=== PATIENT | female | born 1995 | race Caucasian/White ===

== ENCOUNTER 2021-07-17 02:11 | Inpatient (IN) | payer BC ==
[2021-07-17] VITALS (63 sets, daily range): BP systolic 13–145; BP diastolic 44–92
[~2021-07-17] VITALS: Ht 157.5 cm; Wt 85.0 kg
[2021-07-17] MEDS ORDERED: OXYTOCIN PRE-MIX DRIP 500 ML IV ONE ×3 (07:39→21:49)
[2021-07-17] MEDS ORDERED: D5 LR IV SOLUTION 1,000 ML IV ONE (07:39)
[2021-07-17] MEDS ORDERED: AMPICILLIN 2,000 MG/14.8 ML (IV USE) ONE (07:39)
[2021-07-17] MEDS ORDERED: WATER (STERILE) FOR INJECTION 20 ML ONE (07:41)
[2021-07-17] MEDS ORDERED: AMPICILLIN FOR IV USE 2,000 MG in WATER (STERILE) FOR INJECTION 14.8 ML IV SCH (08:16)
[2021-07-17] MEDS: D5 LR IV SOLUTION 1,000 ML IV SCH ×2 (08:19→14:39)
--- NOTE | 2021-07-17 08:27 | History & Physical ---
History and Physical Date Seen by Provider: Jul 17, 2021 Time Seen by Provider: 08:25 This patient is a 26-year-old 1 female who presents at 39+ weeks gestation for elective induction of labor. Her history is significant for a positive group B strep culture after 35 weeks gestation. She denies rupture membranes or bleeding. She denies contractions. She does feel baby moving. Her has been uncomplicated to date. Allergies are none Medications are vitamins Medical social and surgical history is all per the antepartum record HEENT exam is normal Neck is supple no lymphadenopathy no thyromegaly Abdomen is gravid soft nontender nondistended Extremities show no clubbing or cyanosis. There is no Homans' sign. Pelvic exam shows a cervix 2 cm dilated 70% effaced -1 station vertex presentation cervix is soft Amniotomy was performed with release of clear fluid monitor shows normal heart rate pattern/category 1 with some uterine irritability Assessment and plan 39+ weeks gestation admitted for induction of labor under the cover of ampicillin for GBS prophylaxis. We anticipate a vaginal delivery but would be prepared for if needed 39-week induction of labor Allergies and Home Medications Allergies Coded Allergies: No Known Drug Allergies (Unverified , 07/17/21) Patient Home Medication List Home Medication List Reviewed: Yes SHAYNE JOHNSON MD Jul 17, 2021 08:27
[2021-07-17] MEDS ORDERED: D5 LR IV SOLUTION 1,000 ML IV SCH ×2 (08:30→22:45)
[2021-07-17] MEDS ORDERED: OXYTOCIN PRE-MIX DRIP 500 ML IV SCH ×3 (08:30→22:45)
[2021-07-17 08:56] LABS: BILIRUBIN,URINE NEGATIVE (NEGATIVE); CLARITY,URINE CLOUDY; COLOR,URINE YELLOW; GLUCOSE, URINE (UA) NEGATIVE (NEGATIVE); KETONES,URINE NEGATIVE (NEGATIVE); LEUKOCYTE ESTERASE ,URINE TRACE (NEGATIVE); NITRITE,URINE NEGATIVE (NEGATIVE); PH,URINE 7.5 (5-9); PROTEIN,URINE NEGATIVE (NEGATIVE)
[2021-07-17 09:14] LABS: BACTERIA,URINE FEW /HPF; SQUAMOUS EPITHELIAL CELL,UR 0-2 /HPF; WBC,URINE RARE /HPF
[2021-07-17 09:15] LABS: AMORPHOUS SEDIMENT,UR MOD AMOR PHOSPHATE /LPF
[2021-07-17 10:05] LABS: BASOPHILS % (AUTO) 0 % (0-10); EOSINOPHILS # (AUTO) 0.1 10^3/uL (0.0-0.3); EOSINOPHILS % (AUTO) 1 % (0-10); HEMATOCRIT 36 % (35-52); LYMPHOCYTES # (AUTO) 1.9 10^3/uL (1.0-4.0); LYMPHOCYTES % (AUTO) 15 % (12-44); MEAN CORPUSCULAR HEMOGLOBIN 31 pg (25-34); MEAN CORPUSCULAR HGB CONC 33 g/dL (32-36); MEAN CORPUSCULAR VOLUME 92 fL (80-99); MEAN PLATELET VOLUME 11.3 fL (9.0-12.2); MONOCYTES # (AUTO) 1.1 10^3/uL (0.0-1.0); MONOCYTES % (AUTO) 9 % (0-12); NEUTROPHILS # (AUTO) 8.9 10^3/uL (1.8-7.8); NEUTROPHILS % (AUTO) 70 % (42-75); PLATELET COUNT 235 10^3/uL (130-400); WHITE BLOOD COUNT 12.7 10^3/uL (4.3-11.0)
[2021-07-17] MEDS ORDERED: fentaNYL 2 mcg/ml BUPIVA 0.125 100 ML ONE (11:22)
[2021-07-17] MEDS ORDERED: BUPIVACAINE 0.25% 30 ML (SENSORCAINE) VIAL ONE (11:35)
[2021-07-17] MEDS ORDERED: fentaNYL INJ 100 MCG/2 ML AMP ONE ×2 (11:35→20:58)
[2021-07-17] MEDS ORDERED: NALOXONE 0.4 MG/ML 1 ML (NARCAN) VIAL IV PRN ×2 (11:45→22:45)
[2021-07-17] MEDS ORDERED: ONDANSETRON 4 MG/2 ML (SDV) Z0FRAN IV PRN (11:45)
[2021-07-17] MEDS: AMPICILLIN FOR IV USE 1,000 MG in WATER (STERILE) FOR INJECTION 7.4 ML IV SCH ×3 (11:45→19:40)
[2021-07-17] MEDS ORDERED: LACTATED RINGERS 1,000 ML IV ONE (11:45)
[2021-07-17] MEDS ORDERED: CATHETER FLUSH 10 ML SYR IV PRN (11:45)
[2021-07-17] MEDS ORDERED: diphenhydrAMINE 50 MG/ML INJ (BENADRYL) IV PRN (11:45)
[2021-07-17] MEDS: fentaNYL 2 mcg/ml BUPIVA 0.125 100 ML IV SCH ×2 (11:59→19:10)
[2021-07-17] MEDS ORDERED: CATHETER FLUSH 10 ML SYR IV SCH (14:00)
[2021-07-17] MEDS ORDERED: LIDOCAINE 1% INJ 20 ML 20 ML VIAL ONE (19:15)
[2021-07-17] MEDS ORDERED: ceFAZolin 2 GM IV Premixed 50 ML ONE (20:26)
[2021-07-17] MEDS ORDERED: metroNIDAZOLE 500MG/100ML IVPB 100 ML ONE (20:26)
[2021-07-17] MEDS ORDERED: FAMOTIDINE 20MG/2ML IV (PEPCID) ONE (20:27)
[2021-07-17] MEDS ORDERED: METOCLOPRAMIDE INJ 10 MG/2 ML (REGLAN) ONE (20:27)
[2021-07-17] MEDS ORDERED: CITRIC ACID/SOB CIT (BICITRA) 30 ML UDC ONE (20:27)
--- NOTE | 2021-07-17 20:42 | Progress Note ---
Standard Progress Note Progress Notes/Assess & Plan Date Seen by a Provider: Jul 17, 2021 Time Seen by a Provider: 20:40 Progress/Assessment & Plan Patient has been laboring since 8 AM on Pitocin. She had been on Pitocin at 40 milliunits a minute now for 2 hours. 2 hours ago she was about 6 cm at this point she still about 6 cm. On cervical exam the presenting part is at high stationThe cervix is not well applied to the presenting part consistent withFailure to enter the pelvis adequatelyEither from CPD or contracted pelvic inlet. At this point will stop Pitocin and proceed with Vital Signs Date Time Temp Pulse Resp B/P (MAP) Pulse Ox O2 Delivery O2 Flow Rate FiO2 07/17/21 19:00 92 18 114/70 (85) 98 Room Air 07/17/21 18:45 109 18 120/78 (92) 98 Room Air 07/17/21 18:30 119 18 119/77 (91) 98 Room Air 07/17/21 18:15 97 18 125/76 (92) 99 Room Air 07/17/21 18:00 97 18 123/77 (92) 100 Room Air 07/17/21 17:45 98 18 118/77 (91) 99 Room Air 07/17/21 17:30 105 18 116/73 (87) 99 Room Air 07/17/21 17:15 106 18 118/81 (93) 99 Room Air 07/17/21 17:00 95 18 113/73 (86) 99 Room Air 07/17/21 16:45 126 18 120/80 (93) 98 Room Air 07/17/21 16:30 103 18 120/80 (93) 99 Room Air 07/17/21 16:15 100 18 117/74 (88) 99 Room Air 07/17/21 16:00 95 18 113/69 (84) 99 Room Air 07/17/21 15:45 86 18 116/65 (82) 97 Room Air 07/17/21 15:30 36.4 104 20 114/76 (89) 99 Room Air 07/17/21 15:15 98 18 128/77 (94) 98 Room Air 07/17/21 15:00 103 18 119/78 (92) 99 Room Air 07/17/21 14:45 99 18 111/67 (82) 99 Room Air 07/17/21 14:30 98 18 112/62 (79) 99 Room Air 07/17/21 14:15 101 18 112/62 (79) 99 Room Air 07/17/21 14:10 36.6 07/17/21 14:00 103 18 115/80 (92) 99 Room Air 07/17/21 13:45 89 18 117/76 (90) 98 Room Air 07/17/21 13:30 86 18 112/68 (83) 97 Room Air 07/17/21 13:15 102 18 110/71 (84) 99 Room Air 07/17/21 13:00 93 18 135/65 (88) 98 Room Air 07/17/21 12:45 90 18 121/66 (84) 97 Room Air 07/17/21 12:30 91 18 113/67 (82) 97 Room Air 07/17/21 12:20 100 18 115/73 (87) 98 Room Air 07/17/21 12:15 95 18 121/58 (79) 97 Room Air 07/17/21 12:00 94 18 119/76 (90) 96 Room Air 07/17/21 11:55 111 18 129/64 (85) 96 Room Air 07/17/21 11:50 106 18 124/80 (95) 98 Room Air 07/17/21 11:45 124 18 133/76 (95) 100 Room Air 07/17/21 11:41 36.6 96 18 133/76 (95) 100 Room Air 07/17/21 11:30 93 18 128/79 (95) Room Air 07/17/21 11:15 106 18 133/44 (73) Room Air 07/17/21 11:00 106 18 133/77 (95) Room Air 07/17/21 10:45 102 18 121/85 (97) Room Air 07/17/21 10:30 110 18 117/66 (83) Room Air 07/17/21 10:15 99 18 124/75 (91) Room Air 07/17/21 10:00 115 18 137/92 (107) Room Air 07/17/21 09:45 96 18 117/82 (94) Room Air 07/17/21 09:30 104 18 125/86 (99) Room Air 07/17/21 09:15 103 18 145/80 (101) Room Air 07/17/21 09:00 98 18 125/87 (100) Room Air 07/17/21 08:45 105 18 125/87 (100) Room Air 07/17/21 08:30 102 18 115/77 (90) Room Air 07/17/21 08:15 110 18 121/84 (96) Room Air 07/17/21 07:30 36.5 122 18 98 Room Air 07/17/21 07:30 36.5 122 18 130/82 (98) 98 Room Air Vital signs are stable. Patient is afebrile. Pelvic exam shows a cervix that is 5 to 6 cm dilated 100 percent effaced presenting partIt is at about the -3 station and is not well applied to the cervixIs well above the posterior pubic bone Assessment and plan 39-week undergoing induction of labor with failure to progress/failure to descend. We will proceed with SHAYNE JOHNSON MD Jul 17, 2021 20:42
[2021-07-17] MEDS ORDERED: metroNIDAZOLE 500MG/100ML IVPB 100 ML IV ONE (20:45)
[2021-07-17] MEDS ORDERED: OXYC1TAB12 PO (20:46)
[2021-07-17] MEDS ORDERED: IBUP-1780 PO (20:46)
[2021-07-17] MEDS ORDERED: DOCU-143 PO (20:46)
--- NOTE | 2021-07-17 20:47 | Discharge Inst-Surgical ---
Discharge Inst-Surgical Depart Medication/Instructions New, Converted or Re-Newed RX: Transmitted to Pharmacy Consults/Follow Up Patient Instructions: As directed Orders & Referrals Follow Up Appt: RTC 1 week for incision check. Call to make follow up appt. for patient in 4 to 6 weeks. Wound Care: Remove arnaldo, apply benzoin and steri strips. Activity Per routine post instructions. Diet as tolerated Patient may shower or tub bathe as desired. Continue home meds Activity Activity as Tolerated: No Diet Discharge Diet: No Restrictions SHAYNE JOHNSON MD Jul 17, 2021 20:47
[2021-07-17] MEDS ORDERED: BUPIVACAINE 0.5% 30 ML (SENSORCAINE) VIAL ONE (20:58)
[2021-07-17] MEDS ORDERED: KETOROLAC 30 MG/ML VIAL ONE (21:33)
[2021-07-17] MEDS ORDERED: LIDOCAINE PF 2% 5 ML (XYLOCAINE) VIAL ONE (21:49)
[2021-07-17] MEDS ORDERED: CITRIC ACID/SOB CIT (BICITRA) 30 ML UDC PO ONE (22:30)
[2021-07-17] MEDS ORDERED: METOCLOPRAMIDE INJ 10 MG/2 ML (REGLAN) IV ONE (22:30)
[2021-07-17] MEDS ORDERED: FAMOTIDINE 20MG/2ML IV (PEPCID) IV ONE (22:30)
[2021-07-17] MEDS ORDERED: LACTATED RINGERS 1,000 ML IV PRN (22:30)
[2021-07-17] MEDS ORDERED: MEASLES,MUMPS,RUBELLA 1 EA INJ SC ONE (22:45)
[2021-07-17] MEDS ORDERED: fentaNYL INJ 100 MCG/2 ML AMP IVP PRN (22:45)
[2021-07-17] MEDS ORDERED: TETANUS,DIPTH,PERTUSS P/F (BOOSTRIX) 0.5 ML VIAL IM ONE (22:45)
[2021-07-17] MEDS ORDERED: ONDANSETRON 4 MG/2 ML (SDV) Z0FRAN IVP PRN (22:45)
[2021-07-17] MEDS ORDERED: KETOROLAC 30 MG/ML VIAL IVP SCH (22:45)
[2021-07-17] MEDS: oxyCODONE/APAP 10/325MG (PERCOCET 10) TABLET PO PRN (23:29)
[2021-07-18 03:17] VITALS: BP 121/80
--- NOTE | 2021-07-18 05:43 | OPERATIVE REPORT ---
DATE OF SERVICE: 07/17/2021 PREOPERATIVE DIAGNOSIS: A 39-week in labor with failure to progress/CPD. POSTOPERATIVE DIAGNOSES: A 39-week in labor with failure to progress/CPD with persistent OP and contracted pelvic inlet. OPERATIVE PROCEDURE: Primary low transverse delivery of a viable female with Apgars of 8 and 9 at 1 and 5 minutes respectively, weight of 6 pounds 7 ounces. Cord blood pH is pending and a time 2125. OPERATIVE DESCRIPTION: With the patient in the supine position under satisfactory epidural analgesia, she was prepped and draped in the usual fashion for abdominal surgery. Thorne catheter remained in the urinary bladder. A Pfannenstiel incision was made through skin with scalpel, the patient's abdomen entered in the usual manner. Bladder retractor placed in position, clean scalpel used to make a 4 cm hysterotomy incision transversely across the lower uterine segment that was extended bluntly as well. A vigorous viable female was delivered via the uterine incision. had Apgars and stats as noted above. The infant was bulb suctioned on delivery of the head and again on completion of delivery. The delivery was accomplished from a straight OP position with a very high station with some caput formation down into the pelvis and with the impression of a very contracted pelvic inlet. The infant had been bulb suctioned on delivery of the head and again on completion of delivery. The umbilical cord was doubly clamped and cut and the passed to the pediatric nurse in attendance for delivery. Cord bloods were obtained. The placenta delivered spontaneously Matos. It was normal with a 3-vessel cord. The uterus was exteriorized and interior wiped clean with a wet laparotomy sponge. Uterine incision closed with running locked suture of 2-0 Vicryl. Hemostasis was satisfactory; however, the uterus was relatively atonic. Modified B-Sequeira suture was placed using 2-0 chromic sutures to compress the uterus and minimize potential for progressive blood loss. The uterus was now returned to abdominal cavity. All blood clot and debris removed from the abdominal cavity. Sponge and needle counts correct, hemostasis assured. Anterior parietal peritoneum was closed with running suture of 2-0 Vicryl. Rectus muscles were closed with that suture. Rectus fascia was closed with 2-0 Vicryl, subcutaneous tissue was closed with 2-0 Vicryl and the skin was stapled. Sponge and needle counts were correct on completion of procedure. Estimated blood loss was around 400 mL. The patient tolerated the procedure well and remained in the LDR. When I left, the baby remained with the mom. Job ID: [id number] DocumentID: [id number] Dictated Date: 07/17/2021 21:48:50 Small Offset Printer Date: 07/18/2021 05:42:37 Dictated By: SHAYNE JOHNSON MD
[2021-07-18] MEDS: IBUPROFEN 800 MG (MOTRIN) TAB PO SCH ×5 (06:00→20:50)
[2021-07-18] MEDS: DOCUSATE SODIUM 100 MG (COLACE) CAP PO SCH ×2 (08:29→20:50)
[2021-07-18 08:30] VITALS: BP 120/70
[2021-07-18] MEDS: oxyCODONE/APAP 10/325MG (PERCOCET 10) TABLET PO PRN ×4 (08:30→22:40)
--- NOTE | 2021-07-18 08:32 | Progress Note ---
Standard Progress Note Progress Notes/Assess & Plan Date Seen by a Provider: Jul 18, 2021 Time Seen by a Provider: 08:31 Progress/Assessment & Plan MentalPatient has been laboring since 8 AM on Pitocin. She had been on Pitocin at 40 milliunits a minute now for 2 hours. 2 hours ago she was about 6 cm at this point she still about 6 cm. On cervical exam the presenting part is at high stationThe cervix is not well applied to the presenting part consistent withFailure to enter the pelvis adequatelyEither from CPD or contracted pelvic inlet. At this point will stop Pitocin and proceed with Vital Signs Date Time Temp Pulse Resp B/P (MAP) Pulse Ox O2 Delivery O2 Flow Rate FiO2 07/17/21 19:00 92 18 114/70 (85) 98 Room Air 07/17/21 18:45 109 18 120/78 (92) 98 Room Air 07/17/21 18:30 119 18 119/77 (91) 98 Room Air 07/17/21 18:15 97 18 125/76 (92) 99 Room Air 07/17/21 18:00 97 18 123/77 (92) 100 Room Air 07/17/21 17:45 98 18 118/77 (91) 99 Room Air 07/17/21 17:30 105 18 116/73 (87) 99 Room Air 07/17/21 17:15 106 18 118/81 (93) 99 Room Air 07/17/21 17:00 95 18 113/73 (86) 99 Room Air 07/17/21 16:45 126 18 120/80 (93) 98 Room Air 07/17/21 16:30 103 18 120/80 (93) 99 Room Air 07/17/21 16:15 100 18 117/74 (88) 99 Room Air 07/17/21 16:00 95 18 113/69 (84) 99 Room Air 07/17/21 15:45 86 18 116/65 (82) 97 Room Air 07/17/21 15:30 36.4 104 20 114/76 (89) 99 Room Air 07/17/21 15:15 98 18 128/77 (94) 98 Room Air 07/17/21 15:00 103 18 119/78 (92) 99 Room Air 07/17/21 14:45 99 18 111/67 (82) 99 Room Air 07/17/21 14:30 98 18 112/62 (79) 99 Room Air 07/17/21 14:15 101 18 112/62 (79) 99 Room Air 07/17/21 14:10 36.6 07/17/21 14:00 103 18 115/80 (92) 99 Room Air 07/17/21 13:45 89 18 117/76 (90) 98 Room Air 07/17/21 13:30 86 18 112/68 (83) 97 Room Air 07/17/21 13:15 102 18 110/71 (84) 99 Room Air 07/17/21 13:00 93 18 135/65 (88) 98 Room Air 07/17/21 12:45 90 18 121/66 (84) 97 Room Air 07/17/21 12:30 91 18 113/67 (82) 97 Room Air 07/17/21 12:20 100 18 115/73 (87) 98 Room Air 07/17/21 12:15 95 18 121/58 (79) 97 Room Air 07/17/21 12:00 94 18 119/76 (90) 96 Room Air 07/17/21 11:55 111 18 129/64 (85) 96 Room Air 07/17/21 11:50 106 18 124/80 (95) 98 Room Air 07/17/21 11:45 124 18 133/76 (95) 100 Room Air 07/17/21 11:41 36.6 96 18 133/76 (95) 100 Room Air 07/17/21 11:30 93 18 128/79 (95) Room Air 07/17/21 11:15 106 18 133/44 (73) Room Air 07/17/21 11:00 106 18 133/77 (95) Room Air 07/17/21 10:45 102 18 121/85 (97) Room Air 07/17/21 10:30 110 18 117/66 (83) Room Air 07/17/21 10:15 99 18 124/75 (91) Room Air 07/17/21 10:00 115 18 137/92 (107) Room Air 07/17/21 09:45 96 18 117/82 (94) Room Air 07/17/21 09:30 104 18 125/86 (99) Room Air 07/17/21 09:15 103 18 145/80 (101) Room Air 07/17/21 09:00 98 18 125/87 (100) Room Air 07/17/21 08:45 105 18 125/87 (100) Room Air 07/17/21 08:30 102 18 115/77 (90) Room Air 07/17/21 08:15 110 18 121/84 (96) Room Air 07/17/21 07:30 36.5 122 18 98 Room Air 07/17/21 07:30 36.5 122 18 130/82 (98) 98 Room Air Vital signs are stable. Patient is afebrile. Pelvic exam shows a cervix that is 5 to 6 cm dilated 100 percent effaced presenting partIt is at about the -3 station and is not well applied to the cervixIs well above the posterior pubic bone Assessment and plan 39-week undergoing induction of labor with failure to progress/failure to descend. We will proceed with July 18, 2021 Patient is without complaint. She is ambulating, voiding, tolerating well and has good pain control. Vital Signs 07/18/21 07/18/21 03:17 07:42 Temp 36.8 Pulse 93 Resp 18 B/P (MAP) 121/80 (94) Pulse Ox 96 O2 Delivery Room Air Vital signs are stable. Patient is afebrile. The abdomen is benign Extremities show no clubbing cyanosis. There is no Homans' sign. Assessment and plan Postoperative day #1 status post primary delivery for. Progress in labor at 39 weeks gestation. Plan is for routine convalescent care Final Diagnosis 39-week primary delivery SHAYNE JOHNSON MD Jul 18, 2021 08:32
[2021-07-18] MEDS ORDERED: DOCUSATE SODIUM 100 MG (COLACE) CAP PO SCH (09:00)
[2021-07-18] MEDS ORDERED: ONDANSETRON 4 MG (ZOFRAN) ORAL DISSOLVE TAB PO PRN (10:45)
[2021-07-18 12:00] VITALS: BP 123/73
[2021-07-18] MEDS ORDERED: MEASLES,MUMPS,RUBELLA 1 EA INJ ONE (12:27)
[2021-07-18] MEDS: SIMETHICONE 80 MG (MYLICON) CHEW PO PRN (14:52)
[2021-07-18 16:00] VITALS: BP 124/78
[2021-07-18 20:48] VITALS: BP 117/64
[2021-07-19] MEDS: oxyCODONE/APAP 10/325MG (PERCOCET 10) TABLET PO PRN ×3 (00:37→11:08)
[2021-07-19] MEDS: IBUPROFEN 800 MG (MOTRIN) TAB PO SCH ×2 (02:57→09:07)
[2021-07-19 04:27] VITALS: BP 116/59
--- NOTE | 2021-07-19 07:19 | Progress Note ---
Standard Progress Note Progress Notes/Assess & Plan Date Seen by a Provider: Jul 19, 2021 Time Seen by a Provider: 07:18 Progress/Assessment & Plan MentalPatient has been laboring since 8 AM on Pitocin. She had been on Pitocin at 40 milliunits a minute now for 2 hours. 2 hours ago she was about 6 cm at this point she still about 6 cm. On cervical exam the presenting part is at high stationThe cervix is not well applied to the presenting part consistent withFailure to enter the pelvis adequatelyEither from CPD or contracted pelvic inlet. At this point will stop Pitocin and proceed with Vital Signs Date Time Temp Pulse Resp B/P (MAP) Pulse Ox O2 Delivery O2 Flow Rate FiO2 07/17/21 19:00 92 18 114/70 (85) 98 Room Air 07/17/21 18:45 109 18 120/78 (92) 98 Room Air 07/17/21 18:30 119 18 119/77 (91) 98 Room Air 07/17/21 18:15 97 18 125/76 (92) 99 Room Air 07/17/21 18:00 97 18 123/77 (92) 100 Room Air 07/17/21 17:45 98 18 118/77 (91) 99 Room Air 07/17/21 17:30 105 18 116/73 (87) 99 Room Air 07/17/21 17:15 106 18 118/81 (93) 99 Room Air 07/17/21 17:00 95 18 113/73 (86) 99 Room Air 07/17/21 16:45 126 18 120/80 (93) 98 Room Air 07/17/21 16:30 103 18 120/80 (93) 99 Room Air 07/17/21 16:15 100 18 117/74 (88) 99 Room Air 07/17/21 16:00 95 18 113/69 (84) 99 Room Air 07/17/21 15:45 86 18 116/65 (82) 97 Room Air 07/17/21 15:30 36.4 104 20 114/76 (89) 99 Room Air 07/17/21 15:15 98 18 128/77 (94) 98 Room Air 07/17/21 15:00 103 18 119/78 (92) 99 Room Air 07/17/21 14:45 99 18 111/67 (82) 99 Room Air 07/17/21 14:30 98 18 112/62 (79) 99 Room Air 07/17/21 14:15 101 18 112/62 (79) 99 Room Air 07/17/21 14:10 36.6 07/17/21 14:00 103 18 115/80 (92) 99 Room Air 07/17/21 13:45 89 18 117/76 (90) 98 Room Air 07/17/21 13:30 86 18 112/68 (83) 97 Room Air 07/17/21 13:15 102 18 110/71 (84) 99 Room Air 07/17/21 13:00 93 18 135/65 (88) 98 Room Air 07/17/21 12:45 90 18 121/66 (84) 97 Room Air 07/17/21 12:30 91 18 113/67 (82) 97 Room Air 07/17/21 12:20 100 18 115/73 (87) 98 Room Air 07/17/21 12:15 95 18 121/58 (79) 97 Room Air 07/17/21 12:00 94 18 119/76 (90) 96 Room Air 07/17/21 11:55 111 18 129/64 (85) 96 Room Air 07/17/21 11:50 106 18 124/80 (95) 98 Room Air 07/17/21 11:45 124 18 133/76 (95) 100 Room Air 07/17/21 11:41 36.6 96 18 133/76 (95) 100 Room Air 07/17/21 11:30 93 18 128/79 (95) Room Air 07/17/21 11:15 106 18 133/44 (73) Room Air 07/17/21 11:00 106 18 133/77 (95) Room Air 07/17/21 10:45 102 18 121/85 (97) Room Air 07/17/21 10:30 110 18 117/66 (83) Room Air 07/17/21 10:15 99 18 124/75 (91) Room Air 07/17/21 10:00 115 18 137/92 (107) Room Air 07/17/21 09:45 96 18 117/82 (94) Room Air 07/17/21 09:30 104 18 125/86 (99) Room Air 07/17/21 09:15 103 18 145/80 (101) Room Air 07/17/21 09:00 98 18 125/87 (100) Room Air 07/17/21 08:45 105 18 125/87 (100) Room Air 07/17/21 08:30 102 18 115/77 (90) Room Air 07/17/21 08:15 110 18 121/84 (96) Room Air 07/17/21 07:30 36.5 122 18 98 Room Air 07/17/21 07:30 36.5 122 18 130/82 (98) 98 Room Air Vital signs are stable. Patient is afebrile. Pelvic exam shows a cervix that is 5 to 6 cm dilated 100 percent effaced presenting partIt is at about the -3 station and is not well applied to the cervixIs well above the posterior pubic bone Assessment and plan 39-week undergoing induction of labor with failure to progress/failure to descend. We will proceed with July 18, 2021 Patient is without complaint. She is ambulating, voiding, tolerating well and has good pain control. Vital Signs 07/18/21 07/18/21 03:17 07:42 Temp 36.8 Pulse 93 Resp 18 B/P (MAP) 121/80 (94) Pulse Ox 96 O2 Delivery Room Air Vital signs are stable. Patient is afebrile. The abdomen is benign Extremities show no clubbing cyanosis. There is no Homans' sign. Assessment and plan Postoperative day #1 status post primary delivery for. Progress in labor at 39 weeks gestation. Plan is for routine convalescent care July 19, 2021 This patient is without complaint. She is ambulating, voiding, tolerating oral intake well and has good pain control. Patient is requesting discharge home. Vital Signs Date Time Temp Pulse Resp B/P (MAP) Pulse Ox O2 Delivery O2 Flow Rate FiO2 07/19/21 04:27 36.4 104 18 116/59 (78) 98 Room Air 07/18/21 20:48 36.4 110 18 117/64 (81) 98 Room Air 07/18/21 16:00 36.7 107 18 124/78 (93) 97 Room Air 07/18/21 12:00 36.5 92 18 123/73 (90) 97 Room Air 07/18/21 08:30 36.5 95 18 120/70 (87) 98 Room Air 07/18/21 07:42 Room Air I & O 07/19/21 07:00 Intake Total 1600 ml Output Total 2925 ml Balance -1325 ml Vital signs are stable. Patient is afebrile. The abdomen is benign. The surgical incision is clean dry intact. Extremities show no clubbing cyanosis. There is no Homans' sign. Assessment and plan Postoperative day #2 status post primary delivery doing well. Plan is for discharge home with follow-up in clinic Final Diagnosis 39-week primary delivery SHAYNE JOHNSON MD Jul 19, 2021 07:19
[2021-07-19 09:00] VITALS: BP 129/71
[2021-07-19] MEDS: DOCUSATE SODIUM 100 MG (COLACE) CAP PO SCH (09:07)
[2021-07-19] MEDS: SIMETHICONE 80 MG (MYLICON) CHEW PO PRN (09:07)
--- NOTE | 2021-07-19 10:47 | Anesthesia-Regional Post-Op ---
Regional Patient Condition Mental Status: Alert, Oriented x3 Circulation: Same as Pre-Op Headache: Absent Sensation: Full Recovery Motor Block: Absent Post Op Complications Complications None Follow Up Care/Instructions Patient Instructions None needed. Anesthesia/Patient Condition Patient is doing well, no complaints, stable vital signs, no apparent adverse anesthesia problems. No complications reported per nursing. KATERYNA LAUREANO CRNA Jul 19, 2021 10:47
[2021-07-19 13:25] VITALS: BP 129/71
== END 2021-07-19 13:25 | disposition home or self-care (01) | DRG 788 ==
LOC: LDRP 07:09
PROVIDERS: ADMIT Obstetrics & Gynecology; ATTEND Obstetrics & Gynecology
PROC: 10D00Z1 Extraction of Products of Conception, Low, Open Approach (ICD-10-PCS; principal; 2021-07-17 21:13)
DX: O33.9 Maternal care for disproportion, unspecified (principal); O99.824 Streptococcus B carrier state complicating childbirth; Z3A.39 39 weeks gestation of pregnancy; Z37.0 Single live birth; O62.0 Primary inadequate contractions
CPT/HCPCS: 36415; 81000; 85025; 86780; 86850; 86900; 86901; 90707; 94664

== ENCOUNTER → 2023-10-30 | Outpatient (CLI) | payer BC ==
[~2023-10-30] MED LIST: DOCU-143 PO; IBUP-1780 PO; OXYC1TAB12 PO
--- NOTE | 2023-10-30 17:17 | Diagnostic Imaging Report ---
INDICATION: survey. TECHNIQUE: Multiple real-time grayscale images were obtained over the gravid uterus. COMPARISON: None FINDINGS: Biometrical measurements are as follows: Biparietal 4.65 cm, age 20 weeks 1 days. Head circumference 17.36 cm, age 20 weeks 0 days. Abdominal circumference 14.36 cm, age 19 weeks 5 days. Femur length 3.25 cm, age 20 weeks 1 days. Sonographic estimate age: 20 weeks 0 days. Sonographic estimated date of delivery: 03/18/2024. Estimated Weight: 320 gm (+/- 47 gm). LMP percentile: 15%. heart rate: 147 beats per minute. number: 1 of 1. Single live intrauterine in cephalic presentation. Posterior placenta has a normal appearance. No previa or abruption. heart rate is 147 bpm. Normal appearance of the uterus. The cervical length is 4.0 cm. Normal amniotic fluid with an index of 16 cm. The kidneys, bladder, stomach, ventricles, four-chamber heart, three-vessel cord, spine, and cord insertion are visualized and have a normal appearance. No abnormality identified. The sex is male. IMPRESSION: Single live intrauterine measuring at 20 weeks and 0 days with an NALINI of 03/18/2024. Findings are within range with clinical dates. The estimated weight is 320 g which correspond to 15 percentile. No abnormality identified. Dictated by: Dictated on workstation # [id number]
== END ==
LOC: RAD 15:00
PROVIDERS: ATTEND Nurse Practitioner Women's Health
DX: Z34.82 Encounter for supervision of other normal pregnancy, second trimester (principal); Z3A.20 20 weeks gestation of pregnancy
CPT/HCPCS: 76805